=== PATIENT | female | born 1960 | race Caucasian/White ===

== ENCOUNTER 2016-10-26 09:23 | Emergency (ER) | payer SELFPAY ==
[~2016-10-26] VITALS: Ht 180.3 cm; Wt 66.0 kg
[~2016-10-26 09:23] MED LIST: BACT; HYDR50TA94
[2016-10-26 09:27] VITALS: BP 117/75; PULSE 74; RESP 14; TEMP 97.7; O2SAT 98
[2016-10-26] MEDS ORDERED: CEPH-460 PO (10:28)
[2016-10-26] MEDS ORDERED: HYDR50TA94 PO (10:28)
[2016-10-26] MEDS ORDERED: BACT800T5 PO (10:28)
--- NOTE | 2016-10-26 10:29 | PD ---
HPI Chief Complaint: Skin Problem Time Seen by Provider: 10:26 Travel History International Travel<30 days: No Contact w/Intl Traveler<30days: No Traveled to known affect area: No History of Present Illness HPI 56-year-old female presents to the emergency department complaint of a generalized rash 2 days. 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 Does not know what makes her break out in hives. Has had similar rash in the past. Was seen a month ago at [facility] for similar rash and was given antibiotics, prednisone, and Atarax with resolution of the rash. Patient reports feeling fever and chills yesterday. Reports vomiting bile one time yesterday. Denies fever or vomiting today. Has been taking Atarax for itchiness with good relief. Denies airway edema, stridor, wheezing. Denies chest pain, shortness of breath, abdominal pain. Reports nausea without vomiting. Does not know if she is up-to-date on her tetanus vaccination. Allergies to codeine, Demerol, morphine. Does not have primary care provider. Has not followed up with dermatology. No other modifying factors or associated signs and symptoms. PFSH Past Surgical History Joint Replacement: Yes (LT HIP) Social History Alcohol Use: No Tobacco Use: No Substance Use: No Allergies-Medications (Allergen,Severity, Reaction): Coded Allergies: Codeine (Verified Allergy, Severe, 10/26/16) Demerol (Verified Allergy, Severe, 10/26/16) Morphine (Verified Allergy, Severe, 10/26/16) Reported Meds & Prescriptions Reported Meds & Active Scripts Active Deltasone (Prednisone) 20 Mg Tab 40 Mg PO DAILY 5 Days Hydroxyzine HCl 50 Mg Tab 50 Mg PO BID PRN Bactrim DS (Sulfamethoxazole-Trimethoprim) 800-160 Mg Tab 1 Tab PO BID 10 Days Keflex (Cephalexin) 500 Mg Cap 500 Mg PO Q6H 10 Days Reported Atarax (Hydroxyzine HCl) 50 Mg Tab Review of Systems Except as stated in HPI: all other systems reviewed are Neg Physical Exam Narrative GENERAL: Well-nourished, well-developed female patient, in no acute distress; afebrile, nontoxic-appearing SKIN: Warm and dry. Multiple lesions in different stages of healing to bilateral lower extremities and bilateral upper extremities. A few areas are draining purulent drainage and are with signs of infection. HEAD: Atraumatic. Normocephalic. EYES: Pupils equal and round at 3 mm with brisk reaction. No scleral icterus. No injection or drainage. PERRLA. ENT: Mucosa pink and moist. No erythema or exudates. No uvular edema. No uvular , palatal, or tonsillar deviation. Airway patent. EARS: Bilateral pinnae and external canals appear within normal limits. Bilateral tympanic membranes without erythema, dullness or perforation. NECK: Trachea midline. No lymphadenopathy. CARDIOVASCULAR: Regular rate and rhythm. No murmur appreciated. RESPIRATORY: No accessory muscle use. Clear to auscultation. Breath sounds equal bilaterally. GASTROINTESTINAL: Abdomen soft, non-tender, nondistended. Hepatic and splenic margins not palpable. Bowel sounds are active 4 quadrants. MUSCULOSKELETAL: No obvious deformities. No clubbing. No cyanosis. No edema. NEUROLOGICAL: Awake and alert. Oriented 3. No obvious cranial nerve deficits. Motor grossly within normal limits. Normal speech. Moves all extremities. 5/5 strength to all extremities. PSYCHIATRIC: Appropriate mood and affect; insight and judgment normal. Data Data Last Documented VS Vital Signs Date Time Temp Pulse Resp B/P Pulse Ox O2 Delivery O2 Flow Rate FiO2 10/26/16 09:27 97.7 74 14 117/75 98 Orders Sulfamet-Trimeth Ds 800-160 Mg (Bactrim (10/26/16 10:45) Cephalexin (Keflex) (10/26/16 10:45) Wound Culture And Gram Stain (10/26/16 10:37) MDM Medical Decision Making Medical Screen Exam Complete: Yes Emergency Medical Condition: Yes Medical Record Reviewed: Yes Differential Diagnosis MRSA, staph infection, picking disorder, nonspecific rash Narrative Course 56-year-old female with multiple lesions to bilateral upper and lower extremities. Patient has history of similar rash. Patient says she has history of MRSA. There are multiple areas that are consistent with infection and some areas are draining. Wound culture pending. Patient is afebrile and nontoxic-appearing. She reports feeling feverish yesterday with vomiting 1. Denies fever or vomiting today. Wound care provided in the ER. Keflex and Bactrim administered in the ER. Tetanus updated in the ER. Keflex, Bactrim, Atarax, prednisone prescribed for home. Patient verbalizes understanding and agreement with treatment plan. Patient is medically cleared and stable for discharge. Discussed reasons to return to the emergency department. Instructed patient to follow up with primary care provider. Patient agrees with treatment plan. The patients vital signs are stable and the patient is stable for outpatient follow-up and treatment. Patient discharged home, stable and in no acute distress. Diagnosis Primary Impression: Rash and nonspecific skin eruption Referrals: [facility] Primary Care Physician Patient Instructions: Acute Rash (ED), General Instructions, MRSA (Methicillin Resistant Staphylococcus Aureus) (ED) Departure Forms: Tests/Procedures Additional Instructions: Take antibiotics as prescribed and complete full course; Bactrim is free of [employer] and Keflex as $10 at [employer], or both medications are $14 total at [employer] (verify prices before turning in your prescriptions) [id number] topicals to reduce itch Benadryl as directed and as needed to reduce itch Follow-up with your primary care provider 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
[2016-10-26] MEDS ORDERED: PRED-503 PO (10:31)
[2016-10-26] MEDS ORDERED: TETANUS/DIPHTHERIA TOXOID ADULT 0.5 ML VIAL IM ONE (10:45)
[2016-10-26] MEDS ORDERED: SULFAMETHOXAZOLE-TRIMETHOPRIM DS 800-160 MG TAB PO ONE (10:45)
[2016-10-26] MEDS ORDERED: CEPHALEXIN MONOHYDRATE 500 MG CAP PO ONE (10:45)
== END 2016-10-26 11:01 | disposition home or self-care (01) ==
LOC: NEPB 09:23
DX: R21 Rash and other nonspecific skin eruption (principal); Z23 Encounter for immunization; Z86.14 Personal history of Methicillin resistant Staphylococcus aureus infection; Z96.642 Presence of left artificial hip joint
CPT/HCPCS: 86403; 87070; 87186; 90471; 90714